=== PATIENT | female | born 1970 ===

== ENCOUNTER 2023-07-31 07:00 | Outpatient (NON) | payer BC, SELFPAY | END 2023-07-31 07:01 | disposition home or self-care (01) | LOC: ANHLAB 08-01 12:50 | PROVIDERS: Visit Provider Nurse Practitioner | DX: L57.0 Actinic keratosis (principal) | CPT/HCPCS: 88305 ==

== ENCOUNTER 2023-09-04 07:00 | Outpatient (NON) | payer BC, SELFPAY | END 2023-09-04 07:01 | disposition home or self-care (01) | LOC: ANHLAB 09-05 12:49 | PROVIDERS: Visit Provider Nurse Practitioner | DX: D22.5 Melanocytic nevi of trunk (principal) | CPT/HCPCS: 88305 ==